=== PATIENT | male | born 1955 | race Hispanic/Latino ===

== ENCOUNTER 2017-12-14 07:40 | Observation (INO) | payer BC ==
[2017-12-14] MEDS ORDERED: Meclizine HCl 25 MG TAB ONE (08:29)
[2017-12-14] MEDS ORDERED: Ondansetron ODT 4 MG TAB PO PRN ×2 (09:50→14:26)
[2017-12-14] MEDS ORDERED: Ondansetron HCl/PF 4 MG/2 ML Vial IVP PRN (09:50)
[2017-12-14] MEDS ORDERED: Sodium Chloride 0.9% 1,000 ML IV SCH (10:00)
[2017-12-14] MEDS ORDERED: Acetaminophen 500 MG TAB PO PRN (14:26)
[2017-12-14] MEDS ORDERED: cloNIDine 0.1 MG TAB PO PRN (14:26)
[2017-12-14] MEDS ORDERED: hydrALAZINE 20 MG/ML VIAL SLOW IVP PRN (14:26)
--- NOTE | 2017-12-14 16:02 | HP ---
PRIMARY CARE PROVIDER: Dr. Randall Brennan. CHIEF COMPLAINT: Dizziness with nausea and vomiting. HISTORY OF PRESENT ILLNESS: This is a 62-year-old male who presents to [facility] in transfer from [facility] after presenting with persistent and debilitating dizziness with associated nausea and vomiting. The patient states that he got up from sleeping appr oximately 4:00 a.m. to go to the restroom at which point, he returned to bed turning over and suddenl y experiencing severe dizziness. The patient denied of falling, syncope or visual disturbance other than the room was spinning. The patient denied any head trauma, recent fever, chills or dental proce dures. The patient denies any recent travel history or family members with similar symptoms. The pa mirian does admit that he has had cold-like symptoms over the last 1-2 weeks taking various over-the-c ounter remedies including NyQuil and DayQuil for relief. The patient states he has had intermittent dizziness over the last several weeks when pressed on recollection and corroborated by his at [facility] bedside. The patient denied any increased bruising, taking blood thinners or history of prior TIA or CVAs. The patient states with any specific or slight head movement, he felt severely dizzy with a ssociated nausea. The patient denies any personal history of hypertension or taking chronic medicati ons other than mqwy-woc-notqmpu ibuprofen or cold remedies. In the emergency room, the patient under went evaluation including CT imaging of the brain showing a dural based mass in the right skull verte x suspicious for meningioma. No acute intracranial hemorrhage noted. The patient did receive Decadr on, Zofran and intravenous normal saline for symptomatic relief. The patient states his overall symp toms of dizziness had improved somewhat; however, keeps his eyes closed because of the profound spinn ing of the room that he noted previously. The patient denies any focal or lateralizing weakness to h is extremities, stool or bladder incontinence, difficulty with speech or decreased hearing. PAST MEDICAL HISTORY: Question of seasonal allergies. PAST SURGICAL HISTORY: Reviewed and negative. CURRENT MEDICATIONS: Jhaz-uxk-heftohv ibuprofen and DayQuil. ALLERGIES: No known drug allergies. FAMILY HISTORY: No inheritable diseases per patient report. SOCIAL HISTORY: The patient is and resides in [place], [place]. Works as a guillory/rancher. No tobacco use. Drinks socially. No illicit drug use. Functional of all activities of daily living . Accompanied by multiple family members in the hospital. REVIEW OF SYSTEMS: The following complete review of systems was negative, unless otherwise mentioned in the HPI or below: Constitutional: Weight loss or gain, ability to conduct usual activities. Skin: Rash, itching. Eyes: Double vision, pain. ENT/Mouth: Nose bleeding, neck stiffness, pain, tenderness. Cardiovascular: Palpitations, dyspnea on exertion, orthopnea. Respiratory: Shortness of breath, wheezing, cough, hemoptysis, fever or night sweats. Gastrointestinal: Poor appetite, abdominal pain, heartburn, nausea, vomiting, constipation, or diarr hea. Genitourinary: Urgency, frequency, dysuria, nocturia. Musculoskeletal: Pain, swelling. Neurologic/Psychiatric: Anxiety, depression. Allergy/Immunologic: Skin rash, bleeding tendency. Otherwise, negative except as stated per HPI. PHYSICAL EXAMINATION: VITAL SIGNS: On admission, blood pressure 156/76, pulse 70, respiratory rate 20, temperature 97.8 de grees Fahrenheit and O2 saturation 93% on room air. GENERAL APPEARANCE: This is a 62-year-old male, alert and oriented x3, pleasant, in no acute distres s. HEENT: Pupils are equal, round and reactive to light and accommodation. Horizontal nystagmus noted. Extraocular muscles intact. Nares patent. TMs are clear bilaterally without erythema or external auditory canal fluid or edema. Oropharynx is clear. No lesions noted in the posterior pharynx. Adeel th in fair repair. NECK: Supple. No cervical adenopathy, no thyromegaly, no carotid bruits, no JVD appreciated. Cervi vivian spine with full active and passive range of motion. No meningeal signs appreciated. CHEST: Lungs are clear to auscultation bilaterally. CARDIOVASCULAR: S1 and S2, without noted murmur. ABDOMEN: Rounded, soft, nontender and nondistended. Bowel sounds are positive in all four quadrants . There is no hepatosplenomegaly, no abdominal bruits, no rebound or guarding appreciated. EXTREMITIES: Warm and dry with fair turgor. No clubbing, cyanosis or asymmetric edema appreciated. Pulses palpable distally at the dorsalis pedis, posterior tibial and popliteal arteries bilaterally. Capillary refill less than 2 seconds. NEUROLOGIC: Cranial nerves II-XII are grossly intact. Horizontal nystagmus noted. The patient not observed ambulatory during this exam. PERTINENT LABORATORY AND X-RAY FINDINGS: Sodium 141, potassium 3.4, chloride 104, CO2 of 31, BUN 21, creatinine 0.98, estimated GFR 78, glucose 165 and calcium 9.2. LFTs within normal limits. Troponi n I negative x1. CBC showed a white blood cell count of 7.5, hemoglobin 14, hematocrit 42 and platel et count 137 with normal differential. Urine drug screen dated 12/14/[address] of the brain without contrast dated 12/14/2017 showed right vertex dural based mass, suspicious f or meningioma 1.5 cm. EKG dated 12/14/2017 by my interpretation shows sinus bradycardia with heart r ates in the 50s. Normal R-wave progression noted in the precordial leads. Normal axis. No acute ST -T wave changes appreciated. ASSESSMENT AND PLAN: 1. Severe vertigo. The patient will be placed on observation status. Exact etiology unclear. We w ill continue symptomatic and supportive management with intravenous normal saline at 125 mL per hour. Zofran 4 mg IV q.6 hours p.r.n. Meclizine 25 mg p.o. q.6 hours p.r.n. Continue supportive measure s and monitor clinical response. 2. Brain mass. Exact etiology unclear; however, suspicion for possible meningioma. Consult Neurosu rgery for further evaluation. Check MRI imaging of the brain to further define anatomy. Continue De cadron 4 mg IV q.6 hours. 3. Hyperglycemia. Check A1c level in the a.m. 4. Question of chronic kidney disease stage 2. Continue intravenous fluids as outlined previously. Avoid nephrotoxic agents and contrast media. Repeat creatinine in the a.m. 5. Nausea and vomiting secondarily to #2. Continue Zofran 4 mg IV q.6 hours p.r.n. Continue intrav enous fluids. 6. Prophylaxis. Sequential compression devices while in bed. Pepcid 20 mg p.o. b.i.d. PT evaluati on in the a.m. 7. Code status is FULL. Surrogate medical decision maker is patient's spouse.
--- NOTE | 2017-12-14 16:53 | MRI ---
MRI OF BRAIN WITH AND WITHOUT IV CONTRAST 12/14/17 HISTORY: Headache, dizziness, nausea and vomiting, abnormal CT scan performed earlier today. Intracranial mass . FINDINGS: Correlation is made with the CT brain from earlier today. There is a 17 mm enhancing extra-axial dural mass in the right skull vertex consistent with meningio ma. No adjacent mass effect is seen on the brain parenchyma. No restricted diffusion is identified. N o evidence of infarct, hemorrhage, intra-axial mass, midline shift or abnormal extra-axial fluid barrie ections are seen. There are a few foci of T2 prolongation in the periventricular white matter indicat severino of mild chronic small vessel ischemic disease. The ventricular size is appropriate and the basil ar cisterns patent. There is mucosal disease in the paranasal sinuses. IMPRESSION: 1. Meningioma. 2. No evidence of acute intracranial process or intra-axial mass. POS: PAULA
[2017-12-14 17:06] VITALS: BMI 34.7
[2017-12-14] MEDS ORDERED: Gadobenate Dimeglumine 529 MG/1 ML (20ML VIAL) ONE (17:14)
[2017-12-14] MEDS: Ondansetron HCl/PF 4 MG/2 ML Vial IVP PRN (17:19)
[2017-12-14] MEDS: Meclizine HCl 25 MG TAB PO PRN (17:19)
[2017-12-14 17:23] LABS: INR-International Normal Ratio 1.1; Prothrombin Time 14.3 SEC (12.0-14.7)
--- NOTE | 2017-12-14 17:39 | ULT ---
CAROTID DUPLEX SONOGRAM: 12/14/17 HISTORY: Vascular disease. Dizziness. FINDINGS: RIGHT: Minimal plaque is present. Color and spectral doppler evaluation, peak systolic velocity of 64 cm/s, and IC to CC ratio of 0.5 suggests no hemodynamically significant stenosis within the extracranial ri ght ICA. Antegrade flow is present within the vertebral artery. LEFT: There is minimal plaque. Color and spectral doppler evaluation, peak systolic velocity of 67 cm/s, an d IC to CC ratio of 0.5 suggests no hemodynamically significant stenosis within the extracranial left ICA. Antegrade flow is present within the vertebral artery. IMPRESSION: Atherosclerosis. There is no sonographic evidence of significant extracranial ICA stenosis. POS: PAULA
[2017-12-14] MEDS: Dexamethasone 4 mg/ml Vial SLOW IVP SCH (18:23)
[2017-12-14] MEDS: Ketorolac Tromethamine 30 MG/ML VIAL IVP SCH (18:23)
--- NOTE | 2017-12-14 18:23 | CON ---
DATE OF CONSULTATION: 12/14/2017 HISTORY OF PRESENT ILLNESS: Mr. Jackman is a 62-year-old male who presents to [facility] as a transfer from [facility] after presenting with debilitating dizziness, vertigo, nausea, and vomiting. He states that he woke up this morning to use the restroom. When standing up, he suddenly experienced severe dizziness, the room started spinning. He felt syncopal and had visua l disturbance that the room was spinning. The patient denies any head trauma, any fevers and denies any chills or dental procedures. Over the past few weeks, he has had some cold type symptoms that garcia ve been using very remedies such as Nyquil and DayQuil for relief. During this time, he has had inte rmittent dizziness, but nothing to this extent. He denies taking any blood thinners or has no histor y of TIAs or CVAs. The patient gets very nauseous with any slight movement to the left, to the right of the head with rotation. He has been taking chronic medications for hypertension as well as ibupr ofen and cold remedies recently. On exam, he has a horizontal nystagmus. Cranial nerves are intact. He is GCS 15, alert and oriented x4. No focal motor or sensory deficits in the upper and lower ext remities. The patient did receive Decadron and Zofran in the emergency department and had symptomati c relief. The patient gets relief from closing his eyes to prevent the spinning visual disturbances. He has no focal lateralizing weakness to his extremities or any problems with bowel or bladder. Ne urosurgery was consulted after a CT was completed in the emergency department that showed a right-star ed dural based mass. PAST MEDICAL HISTORY: Seasonal allergies. PAST SURGICAL HISTORY: Reviewed and negative. CURRENT MEDICATIONS: Hrra-fwl-wknqhbo ibuprofen and DayQuil. ALLERGIES: No known drug allergies. FAMILY HISTORY: No inheritable diseases or per patient. 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 He does not use to bacco or nicotine products and illicit drug use. He drinks socially. REVIEW OF SYSTEMS: Positive review of systems for dizziness and nausea with head movement to the lef t, to the right. Otherwise, 10-point review of systems completely is otherwise negative unless state d in the above HPI. PHYSICAL EXAMINATION: HEENT: Normocephalic, atraumatic. Hearing intact. Moist mucous membranes. Trachea is midline. Ey es: Pupils are equal and reactive to light. Extraocular muscles are intact. The patient has a late ral nystagmus. His sclerae is white, nonicteric. NECK: No cervical adenopathy. Cervical spine with full active passive range of motion. No meningea l signs appreciated. CARDIOVASCULAR: Patient has regular rate and rhythm, normal S1, S2 heart sounds. EXTREMITIES: Warm, dry, and normal to inspection of the skin. The patient has no focal sensory or m otor deficits in the upper or lower extremities bilaterally. Cranial nerves II-XII are grossly intac t. Speech is fluent. He answers my questions appropriately. Horizontal nystagmus is noted. I did not watch the patient walk during his exam because of dizziness. LABORATORY DATA: See original H&P for pertinent laboratory data. ASSESSMENT AND PLAN: Mr. Jackman is a 62-year-old male who presents with severe vertigo. Patient fro m a neurosurgical standpoint, we will have him n.p.o. diet overnight. Once we reviewed the MRI scan currently being taken, we will talk with the patient tomorrow about neurosurgical interventions with Dr. Stover. Final recommendations will be made at that point. If there are any further questions , please feel free to contact Neurosurgery.
[2017-12-14] MEDS: Sodium Chloride 0.9% 1,000 ML IV SCH ×2 (21:35→22:52)
[2017-12-14] MEDS: Famotidine 20 MG TAB PO SCH (21:40)
[2017-12-15] MEDS: Ketorolac Tromethamine 30 MG/ML VIAL IVP SCH ×3 (00:05→13:12)
[2017-12-15] MEDS: Dexamethasone 4 mg/ml Vial SLOW IVP SCH ×3 (00:06→13:12)
[2017-12-15 05:48] LABS: Band 2 % (5-11); Hemoglobin 12.9 g/dL (14.0-18.0); Lymphocytes 14 % (21-51); MDiff Complete? YES; Mean Corpuscular HGB CONC 33.2 g/dL (32.0-36.0); Mean Corpuscular Volume 96.5 fl (80.0-94.0); Mean Platelet Volume 8.4 fL (7.4-10.4); Monocytes 3 % (0-10); Neutrophil 81 % (42-75); Platelet Count 181 thou/uL (130-400); RBC Distribution Width 11.4 % (11.5-14.5); Red Blood Cell (RBC) Count 4.02 mill/uL (4.70-6.10); White Blood Cell (WBC) Count 6.7 thou/uL (4.8-10.8)
[2017-12-15] MEDS: Sodium Chloride 0.9% 1,000 ML IV SCH ×2 (05:58→09:43)
[2017-12-15 06:19] LABS: ALT (SGPT) 13 U/L (8-55); AST (SGOT) 8 U/L (5-34); Albumin 3.5 g/dL (3.4-4.8); Alkaline Phosphatase 83 U/L (40-150); Anion Gap 13 mmol/L (10-20); BUN (Urea Nitrogen) 21 mg/dL (8.4-25.7); Bilirubin, Total 0.4 mg/dL (0.2-1.2); Calc. Creatinine Clearance 131 mL/min (70-130); Calcium 8.5 mg/dL (7.8-10.44); Carbon Dioxide 22 mmol/L (23-31); Chloride 107 mmol/L (98-107); Estimated GFR-MDRD Greater than 90; Globulin 4.2 g/dL (2.4-3.5); Glucose 142 mg/dL (80-115); Potassium 3.9 mmol/L (3.5-5.1); Protein, Total 7.7 g/dL (5.8-8.1); Sodium 138 mmol/L (136-145)
[2017-12-15 06:22] LABS: Hemoglobin A1c 5.5 % (4.0-6.0)
--- NOTE | 2017-12-15 07:27 | CON ---
DATE OF SERVICE: 12/15/2017 HISTORY OF PRESENT ILLNESS: Mr. Jackman is a 62-year-old male who I saw in his room this morning. Hi s vertigo has improved overnight. He no longer has visual deficits with the room spinning and his n ausea is under control. I explained to him as well as Dr. Stover this morning that the dural base d mass found on the left convexity is a benign meningioma that is has likely taken decades to develop . It is not pressing on any critical structures in the brain and is not causing any compression. As of now, there is no neurosurgical indication at this time. We will follow in the office over time w ith serial MRI scans in 3 months, 6 months and a year to see if the dural based mass has grown. I ex plained this to the patient. If there are any further questions, please feel free to contact Neurosurgery.
[2017-12-15 07:51] VITALS: TEMP 97.7
--- NOTE | 2017-12-15 09:33 | PRG ---
DATE OF SERVICE: 12/15/2017 NEUROSURGERY PROGRESS NOTE I personally interviewed and examined the patient and agree with documentation of Bijan Rawls PA-C, d ated 12/14/2017. HISTORY: Briefly, Mr. Braydon Jackman was admitted to [facility] yester day with new onset vertigo, nausea, and vomiting. He awoke from sleep the night before last and had disorienting and debilitating vertigo in the early hours of the morning. Vertigo resulted nausea and vomiting and it is difficult to stay upright. He was brought to the hospital where CT imaging of th e brain revealed hyperdensity in the extraaxial space over the convexity of the right hemisphere. MR imaging of the brain did not reveal any lesions or strokes in the posterior fossa and did show unifo rmly contrast enhancing lesion in the extraaxial space over the right convexity without mass effect a nd without T2 signal change in the brain underneath. He was admitted to the medical service. This m orning, he is more comfortable. There is still a sense of vertigo, but not as severe as it was, ther e is no nausea or vomiting. Other than the persistent nystagmus, I do not find any neurological defi cits. Alternating rapid motions are performed rapidly and smoothly. There is no lateralizing motor or sensory deficits and the other cranial nerves are intact. I reviewed MR imaging myself and this lesion appears to be a meningioma without mass effect. It is s mall enough that it can be observed over time or removed electively at some point. Meningioma, in my view, it is not causing any symptoms at all. It is unrelated to the vertigo. It i s the wrong area of the brain to cause vertigo. I think the vertiginous symptoms are related to the inner ear apparatus and/or possibly an inflammatory neuritis with the eighth cranial nerve. Neurosur gical intervention for his vertigo would not be appropriate. We will follow up in clinic regarding t he incidental meningioma.
[2017-12-15] MEDS: Ondansetron HCl/PF 4 MG/2 ML Vial IVP PRN (09:42)
[2017-12-15] MEDS: Famotidine 20 MG TAB PO SCH (09:42)
[2017-12-15] MEDS: Meclizine HCl 25 MG TAB PO PRN (09:42)
[2017-12-15 11:41] VITALS: BP 164/81
--- NOTE | 2017-12-15 12:04 | DIS ---
DATE OF ADMISSION: 12/14/2017 DATE OF DISCHARGE: 12/15/2017 DISCHARGE DIAGNOSES: 1. Benign positional vertigo. 2. Meningioma of the right vertex. 3. Nausea and vomiting secondary to #1, resolved. 4. Acute sinusitis. CONSULTATIONS: Dr. Stover with Neurosurgical Service. PERTINENT LAB AND X-RAY FINDINGS: Basic metabolic profile within normal limits. Hemoglobin A1c 5.5, magnesium 2.0, TSH 0.51. CBC showed a white blood cell count 6.7, hemoglobin 13, hematocrit 39 and platelet count 181. CT of the brain without contrast dated 12/14/2017 showed a 15 mm extraaxial dura l based mass in the right skull vertex suspicious for meningioma. MRI of the brain dated 12/14/2017 showed a 17 mm extraaxial dural mass in the right skull vertex. No evidence for acute CVA. Carotid Doppler study dated 12/14/2017 showed no hemodynamically significant stenosis. HOSPITAL COURSE: The patient was observed after initially presenting with severe vertigo with associ ated nausea and vomiting and incidental finding of right vertex brain mass concerning for meningioma. The patient underwent evaluation by the Neurosurgical Service for correlation with current presenta tion. No specific relationship to a vertigo related to the meningioma with recommendations for conse rvative management and outpatient followup. The patient was treated with meclizine, IV fluids, Decad erika and antiemetics with rapid improvement in vertiginous symptoms by the time of discharge. The pat ient ambulated with physical therapy with current recommendations to pursue outpatient vestibular francisco abilitation on discharge. The patient was incidentally noted with a paranasal sinusitis with current recommendations for antibiotic therapy. The patient will transition to Augmentin 500 mg b.i.d. for 2 weeks after discharge. Overall, the patient remained clinically stable during the hospital course, tolerating regular oral intake, and ready for discharge on 12/15/2017. DISCHARGE MEDICATIONS: 1. Augmentin 500 mg 1 tab p.o. b.i.d. x2 weeks. 2. Meclizine 25 mg p.o. q.6h. p.r.n. dizziness. FOLLOWUP: The patient may follow up with his primary care provider, Dr. Randall Brennan, within 7 days of discharge. The patient will follow up with [facility], referral sent. CONDITION ON DISCHARGE: Stable. ACTIVITY: Ad jagdish. DIET: Heart healthy. CODE STATUS: Full. DISPOSITION: Home 12/15/2017.
== END 2017-12-15 12:00 | disposition home or self-care (01) ==
LOC: ERS 07:40 → 2SE 08:26
PROVIDERS: ADMIT Family Medicine; ATTEND Family Medicine
DX: H81.10 Benign paroxysmal vertigo, unspecified ear (principal); D32.0 Benign neoplasm of cerebral meninges; J01.90 Acute sinusitis, unspecified; R73.9 Hyperglycemia, unspecified; Z87.891 Personal history of nicotine dependence
CPT/HCPCS: 36415; 70553; 80053; 83036; 83735; 84443; 85007; 85027; 85610; 85730; 93880; 96361; 96374; 96375; 96376; 99285; A9579; G0378; G8978-GP-CK; G8979-GP-CH; J1100; J1885; J2405